=== PATIENT | female | born 1985 | race Caucasian/White ===

== ENCOUNTER 2016-12-03 16:39 | Emergency (ER) | payer OTHER ==
[~2016-12-03] VITALS: Ht 165.1 cm; Wt 81.0 kg
[2016-12-03 17:00] VITALS: BP 138/87; PULSE 113; RESP 18; TEMP 98.6; O2SAT 96
[2016-12-03] MEDS ORDERED: SODIUM CHLOR 0.9% 1000 ML INJ 1,000 ML IV SCH (17:24)
[2016-12-03] MEDS ORDERED: SODIUM CHLORIDE 0.9% FLUSH 10 ML FLUSH IV FLUSH PRN (17:30)
[2016-12-03] MEDS ORDERED: MORPHINE SULFATE 8 MG/ML INJ IV PUSH ONE (17:30)
[2016-12-03] MEDS ORDERED: ONDANSETRON HCL 4 MG/2 ML VIAL IVP ONE (17:30)
--- NOTE | 2016-12-03 17:43 | PD ---
HPI Chief Complaint: Abdominal Pain Time Seen by Provider: 17:08 Travel History International Travel<30 days: No Contact w/Intl Traveler<30days: No Traveled to known affect area: No History of Present Illness HPI Patient is a 31-year-old female presents emergency department for abdominal pain after having a laparoscopic hysterectomy this morning. Her surgeon was Dr. Queen. Patient has been taking her Toradol as prescribed at home and still been having similar pain. She states that she's also had a history of endometriosis. States she's been tolerating some crackers at home has not had a bowel movement yet. Denies any dysuria denies any fevers. She call Dr. Queen's office and had no answer so she came to the emergency department. States the pain is severe 9 out of 10 cramping in nature. She states after exploratory laparoscopy some months ago she certainly did not have as much pain. PFSH Past Medical History Narrative Medical ADD, anxiety. ?: Not Past Surgical History Narrative Surgical Hysterectomy, tonsillectomy, Hysterectomy: Yes Social History Alcohol Use: No Tobacco Use: No Allergies-Medications (Allergen,Severity, Reaction): Coded Allergies: Penicillins (Verified Allergy, Intermediate, RASH, 12/03/16) Sulfa (Sulfonamide Antibiotics) (Verified Allergy, Unknown, FAMILY HISTORY , 12/03/16) gentamicin (Verified Allergy, Unknown, FAMILY HISTORY, 12/03/16) Reported Meds & Prescriptions Reported Meds & Active Scripts Active Phenergan (Promethazine HCl) 25 Mg Tablet 25 Mg PO Q6H PRN Douglas (Hydrocodone-Acetaminophen) 10-325 Mg Tab 1 Tab PO Q6H PRN Reported Strattera (Atomoxetine HCl) 40 Mg Cap 40 Mg PO DAILY Review of Systems Except as stated in HPI: all other systems reviewed are Neg Physical Exam Narrative GENERAL: Well-developed well-nourished, appears mildly uncomfortable. SKIN: Focused skin assessment warm/dry. HEAD: Atraumatic. Normocephalic. EYES: Pupils equal and round. No scleral icterus. No injection or drainage. ENT: No nasal bleeding or discharge. Mucous membranes pink and moist. NECK: Trachea midline. No JVD. CARDIOVASCULAR: Regular rate and rhythm. No murmur appreciated. RESPIRATORY: No accessory muscle use. Clear to auscultation. Breath sounds equal bilaterally. GASTROINTESTINAL: Abdomen soft, appropriately tender to palpation, nondistended. Hepatic and splenic margins not palpable. Patient has superpubic surgical scar as well as right lower quadrant surgical scar both of which are clean dry and intact. Skin adhesive in place. There is no rebound no percussive tenderness, normal active bowel sounds.. MUSCULOSKELETAL: No obvious deformities. No clubbing. No cyanosis. No edema. NEUROLOGICAL: Awake and alert. No obvious cranial nerve deficits. Motor grossly within normal limits. Normal speech. PSYCHIATRIC: Appropriate mood and affect; insight and judgment normal. Data Data Last Documented VS Vital Signs Date Time Temp Pulse Resp B/P (MAP) Pulse Ox O2 Delivery O2 Flow Rate FiO2 12/03/16 19:51 12/03/16 19:26 98.9 99 18 96 Room Air Orders Orders Basic Metabolic Panel (Bmp) (12/03/16 17:24) Complete Blood Count With Diff (12/03/16 17:24) Lactic Acid (12/03/16 17:24) Iv Access Insert/Monitor (12/03/16 17:24) Ecg Monitoring (12/03/16 17:24) Oximetry (12/03/16 17:24) Ondansetron Inj (Zofran Inj) (12/03/16 17:30) Sodium Chlor 0.9% 1000 Ml Inj (Ns 1000 M (12/03/16 17:24) Sodium Chloride 0.9% Flush (Ns Flush) (12/03/16 17:30) Morphine Inj (Morphine Inj) (12/03/16 17:30) Oxycodone-Acetamin 5-325 Mg (Percocet (12/03/16 18:45) Labs Laboratory Tests Test 12/03/16 17:30 White Blood Count 9.4 TH/MM3 Red Blood Count 4.40 MIL/MM3 Hemoglobin 13.8 GM/DL Hematocrit 40.2 % Mean Corpuscular Volume 91.3 FL Mean Corpuscular Hemoglobin 31.3 PG Mean Corpuscular Hemoglobin Concent 34.3 % Red Cell Distribution Width 11.3 % Platelet Count 288 TH/MM3 Mean Platelet Volume 8.9 FL Neutrophils (%) (Auto) 91.3 % Lymphocytes (%) (Auto) 6.2 % Monocytes (%) (Auto) 0.9 % Eosinophils (%) (Auto) 0.1 % Basophils (%) (Auto) 1.5 % Neutrophils # (Auto) 8.6 TH/MM3 Lymphocytes # (Auto) 0.6 TH/MM3 Monocytes # (Auto) 0.1 TH/MM3 Eosinophils # (Auto) 0.0 TH/MM3 Basophils # (Auto) 0.1 TH/MM3 CBC Comment DIFF FINAL Differential Comment Blood Urea Nitrogen 8 MG/DL Creatinine 0.80 MG/DL Random Glucose 139 MG/DL Calcium Level 8.5 MG/DL Sodium Level 136 MEQ/L Potassium Level 4.0 MEQ/L Chloride Level 105 MEQ/L Carbon Dioxide Level 23.4 MEQ/L Anion Gap 8 MEQ/L Estimat Glomerular Filtration Rate 84 ML/MIN Lactic Acid Level 1.7 mmol/L [facility] Medical Decision Making Medical Screen Exam Complete: Yes Emergency Medical Condition: Yes Differential Diagnosis postoperative pain, status post hysterectomy, acute abdomen unlikely, bowel perforation unlikely. Narrative Course patient roomed emerged permit, basic labs are reassuring, does have smiled left shift of her white blood cell counts but this could be reactive secondary to having surgery today. Lactic acid is negative. She was given morphine her pain is down to 5 out of 10, Percocet was given for longer acting medication. Patient was discussed Dr. Queen and I really have conveyed that the patient has benign abdomen currently and he states the patient's surgery was actually fairly clean and uncomplicated. He states that when she went home she was not having any issues. We agree for short course of Douglas to follow-up with his office on Thursday or Thursday (four or 5 days from now). This is discussed the patient and she is stable for discharge this time. Discussed return to ED criteria and follow-up as above. Diagnosis Primary Impression: Postoperative generalized abdominal pain Med/Other Pt SpecificInfo: Prescription(s) given Scripts Promethazine (Phenergan) 25 Mg Tablet 25 MG PO Q6H Y for NAUSEA OR VOMITING, #12 TAB 0 Refills Prov: Naif Agudelo MD 12/03/16 Hydrocodone-Acetaminophen (Douglas) 10-325 Mg Tab 1 TAB PO Q6H Y for PAIN, #20 TAB 0 Refills Prov: Naif Agudelo MD 12/03/16 Disposition: 01 DISCHARGE HOME Condition: Stable Naif Agudelo MD Dec 03, 2016 17:43
[2016-12-03 17:47] LABS: AUTOMATED NEUTROPHIL # 8.6 TH/MM3 (1.8-7.7); BASOPHIL # 0.1 TH/MM3 (0-0.2); BASOPHIL % 1.5 % (0.0-2.0); EOSINOPHIL % 0.1 % (0.0-4.0); HEMATOCRIT 40.2 % (35.0-46.0); LYMPH % 6.2 % (9.0-44.0); LYMPHOCYTE # 0.6 TH/MM3 (1.0-4.8); MEAN CELL VOLUME 91.3 FL (80.0-100.0); MEAN CORPUSCULAR HEMOGLOBIN 31.3 PG (27.0-34.0); MEAN CORPUSCULAR HGB CONC 34.3 % (32.0-36.0); MONO % 0.9 % (0.0-8.0); NEUT % 91.3 % (16.0-70.0); PLATELET COUNT 288 TH/MM3 (150-450); RED CELL DISTRIBUTION WIDTH 11.3 % (11.6-17.2); WHITE BLOOD COUNT 9.4 TH/MM3 (4.0-11.0)
[2016-12-03 17:50] LABS: HEMO FLAGS DIFF FINAL
[2016-12-03 17:58] LABS: BICARBONATE 23.4 MEQ/L (21.0-32.0)
[2016-12-03 18:15] VITALS: BP 112/75; PULSE 80; RESP 16; O2SAT 97
[2016-12-03] MEDS ORDERED: oxyCODONE/ACETAMINOPHEN 5 MG/325 MG TAB PO ONE (18:45)
[2016-12-03] MEDS ORDERED: ATOM40 PO (18:47)
[2016-12-03] MEDS ORDERED: HYDR-3366 PO (19:04)
[2016-12-03] MEDS ORDERED: PROM25TA10 PO (19:13)
[2016-12-03 19:26] VITALS: BP 111/76; PULSE 99; RESP 18; TEMP 98.9; O2SAT 96
== END 2016-12-03 19:52 | disposition home or self-care (01) ==
LOC: PHED 16:39
DX: R10.84 Generalized abdominal pain (principal); G89.18 Other acute postprocedural pain
CPT/HCPCS: 80048; 83605; 85025; 96361; 96374; 96375; 99284; J2270; J2405; J7030